=== PATIENT | male | born 1945 | race African-American/Black ===

== ENCOUNTER 2025-07-18 15:59 | Inpatient (IN) | payer MEDICARE, BC, SELFPAY ==
--- OUTSIDE RECORDS SUMMARY | 2022-05-15 06:00 | XMS_ITS | Continuity of Care Document ---
Author Organization [facility] (Formerly [employer] Address [address] [facility] [address] [place] [address] Phone Care Team Providers Care Van Driver Helper Name Role Phone Lloyd White MD, FACS Unavailable Unavailab le Allergies, Adverse Reactions, Alerts Substance Reaction Status Criticality No Known Allergies Active No Inform ation Medications Medication Instructions Dosage Effective Dates (start - stop) Status Comments ketorolac 0.5 % eye drops instill 1 drop in the operated eye 3 times a day x 1 month; to begin after being seen in the office for first post op visit. - Active Polytrim 10,000 unit-1 mg/mL eye drops Instill one drop into Operated Eye QID x 7 days; to begin after being seen in the office for first post op visit. - Active prednisolone acetate 1 % eye drops,suspension Instill 1 drop into Operated Eye QID x 2 weeks, BID x 2 weeks; to begin after being seen in the office for first post op visit. - Active folic acid 0.8 mg capsule take 1 capsule by oral route every day for 1 month 1 capsule - Active allopurinol 300 mg tablet take 1 tablet by oral route every day 300 MG - Active lactulose 10 gram oral packet take 1 packet by oral route every day dissolved in 4 ounces of water 10 G - Active brimonidine 0.2 % eye drops instill 1 drop by ophthalmic route 2 times every day into left eye 1 drop - Active furosemide 40 mg tablet take 1 tablet by oral route every day 40 MG - Active rosuvastatin 5 mg tablet take 1 tablet by oral route every day 5 MG - Active colchicine 0.6 mg capsule take 1 capsule by oral route every day 0.6 MG - Active Lotrel 10 mg-20 mg capsule benazepril - Active Procedures Procedure Date [facility] W/ECP IOLMaster-Professional No Charge Refraction No Charge Optomap Fundus Photos 022 Post-op Follow-up Visit [facility] W/ECP IOLMaster-Technical Corneal Topography SCODI, Retina IOLMaster-Professional No Charge Refraction Office/outpatient Visit, New Advance Directives Directive Yes / No Effective Date File Name No Information Encounters Encounter Description Practice Location Reason(s) For Visit Diagnoses Date Provider Providers Copied on [facility]counter [facility], [address] [place] [address] [employer] [facility], [place], [id number], tel:[phone] [facility] No Information 2 Christopher Desai. [address] [place] [address] [employer] [facility], [address], [place], [address], . tel:[phone] Referring Provider: Rajeev Juan OD, [address] [place], [address]. tel:[phone] [facility], [address] [place] [address] [employer] [address], [place], [place], [id number], tel:[phone] SEC Vishal Cuevas No Information 2 Christopher Desai. [address] [place] [address] [employer], [address], [place], [place], [address], . tel:[phone] Referring Provider: Rajeev Juan OD, [address] [place], [address]. tel:[phone] [facility], [address], [place], [place], [address], [place] tel:[phone] [place] 1 week postop/ 90 day (chief complaint) Postop check 2 Christopher Lloyd. Formerly named [facility] [address], [address], [place], [place], [address], . tel:[phone] Referring Provider: Rajeev Juan OD, 1 [facility] [employer] [place], [place], [address]. tel:[phone] [facility], [address] [place], [place] [address], [place], [place], [address], tel:[phone] [facility] No Information 2 Christopher Lloyd. Formerly named [facility] [address], [address], [place], [place], [address], . [phone] Referring Provider: Rajeev Juan OD, 1 [facility] [employer] [place], [place], [address]. tel:[phone] [facility], Formerly named [facility] [address], [place], [place], [address], tel:[phone] [place] Testing only (chief complaint) No Information 2 Christopher Lloyd. Formerly named [facility] [address], [address], [place], [place], [address], [place]. [phone] Referring Provider: Rajeev Juan OD, 1 [facility], [place], [address]. tel:[phone] [facility] [address] [facility], [address] [place], [place] [address], [place], [place], [address], [place] tel:[phone] [place] No Information 2 [place] Lloyd. Formerly named [facility] [address], [address], [place], [place], [address], [place]. [phone] Referring Provider: Rajeev Juan OD, 1 [facility], [place], [address]. tel:[phone] [facility] Eye [facility], [address], [place], [place], [address], [place] tel:[phone] [place] No Information 2 Ashland Lloyd. [address], [address], [place], [place], [address], [place]. tel:[phone] Office/outpa tient Visit, [place] [facility], [address], [place], [place], [address], [place] tel:[phone] SEC [facility] Cataract evaluation (chief complaint) Combined forms of age-related cataract, bilateralPri dao open-angle glaucoma, bilateral, indeterminat e stage 2 Christopher Lloyd. Formerly named [facility] [employer], [address], [place], [place], [address], [place]. tel:[phone] Referring Provider: Rajeev Juan OD, 1 [facility], [place], [address]. tel:[phone] [facility], [address], [place], [place], [address], [place] tel:[phone] SEC Vish[place] N [place] No Information 2 Paige OD Miguel. [address] [facility] [place], [address], [place]. tel:[phone] [facility], [address], [place], [place], [address], [place] tel:[phone] SEC [place] No Information 2 Christopher Lloyd. [address], [address], [place], [place], [address], [place]. tel:[phone] Family History Family Member Type Diagnosis Age At Onset Problem Family history of Glaucoma Problem Family history of Diabetes edgardo monroe Payers Payer name Insurance type Covered constitution party ID Susu lainez(s) [place] [id number] [place] Out Of [place] [id number] Social History Type Description Quantity Date Captured Comments Sex Male Smoking Status No Information Chief Complaint And Reason For Visit No Information Reason For Referral Reason For Referral No Information Plan Of Treatment Date Type Action Status Goal Tobacco cessation counseling completed Goal Tobacco cessation counseling completed Goal Tobacco cessation counseling completed Goal Tobacco cessation counseling completed History Of Present Illness Encounter Date Complaint History Of Prese nt Illness 1 week postop/ 90 day The 76 yea r old patient presents for evaluation of 1 week postop/ 90 day in the right eye and left eye. Pt. has h/o PC/IOL w/ ECP OD 04/17/2022, and Cataract OS. Pt. using Pred. Acetate 1% OD bid and Ketorolac OD tid. Pt. states vision is much better in OD since surgery. Pt. states no pain or discomfort. Pt. states vision with OS is blurry trying to read fine print. Pt. also has trouble driving at night due to glare from headlights. Testing only The 76 year old patient presents for evaluation of Testing only in the right eye and left eye. Pt presents for IOL Master, Keratograph and OCT Macula. Cataract evaluation The 76 year old patient presents for evaluation of Cataract with possible ECP evaluation in the right eye and left eye. Hx of Cataracts OU and Glc OU. Pt using Brimonidine OU bid (when he remembers, about every other day). Pt states OU VA blurry, like looking through a fog. Pt states it's difficult to drive at night due to headlight glare, having to get closer to street signs to see them clearly, and it's difficult to see small print. DVA and NVA gradual decrease x 2 yrs. Functional Status Date Functional Assessmen t No Information Instructions Date Instruction Additional Infor mation Impression/Plan Impression/Plan Assessments Type Assessment Date No Information Patient Care Teams Name Effective Dates (start - stop) Status Members No Information
--- OUTSIDE RECORDS SUMMARY | 2025-07-18 16:06 | XMS_ITS | Encounter Summary ---
Author Organization [employer] Address [address] [place] [address] Care Team Providers Care Bag Machine Tender Name Role Phone Unavailable Primary Care Provider Unavailabl e Encounter Details Date Type Department Care Team (Late st Contact Info) Description 05/27/2019 Lab Requisition [facility] [address] [place] [address] Roxanne Cota MD [address] [place] [address] Weakness Social History Tobacco Use Types Packs/Day Years Used Date Smoking Tobacco: Never Assessed Sex and Gender Information Value Date Recorded Sex Assigned at Not on file Legal Sex Male 1:23 AM CDT Gender Identity Not on file Sexual Orientation Not on file documented as of this encounter Plan of Treatment Not on file documented as of this encounter Procedures Procedure Name Priority Date/Time Associated Diagnosis Comments CBC WITH DIFFERENTIAL Routine 05/27/2019 5:12 AM CDT Weakness TSH Routine 05/27/2019 5:12 AM CDT Weakness BASIC METABOLIC PANEL Routine 05/27/2019 5:12 AM CDT Weakness documented in this encounter Results * TSH (05/27/2019 5:12 AM CDT) TSH 1.97 0.27 - 4.20 uIU/mL 05/27/2019 8:37 AM CDT [facility] [employer] [facility] Blood Venipuncture / Unknown 05/27/2019 5:12 AM CDT 05/27/2019 7:30 AM CDT us Roxanne Cota MD CHEMISTRY ORDERABLES Final Resu lt [employer] LABORATORY SERVICES - [facility] CLIA# [id number] [address] [place] [address] * (ABNORMAL) BASIC METABOLIC PANEL (05/27/2019 5:12 AM CDT) SODIUM 141 136 - 145 mmol/L 05/27/2019 8:34 AM T [employer] LABORATORY SERVICES - . [facility] POTASSIUM 3.8 3.5 - 5.0 mmol/L 05/27/2019 8:34 AM T [employer] [facility] SERVICES - . [facility] CHLORIDE 105 98 - 107 mmol/L 05/27/2019 8:34 AM T [employer] [facility] - . [facility] CO2 25 22 - 29 mmol/L 05/27/2019 8:34 AM [facility] [employer] SERVICES - . [facility] CALCIUM 8.9 8.6 - 10.2 mg/dL 05/27/2019 8:34 AM T [employer] SERVICES - . [facility] BUN 7(L) 8 - 23 mg/dL 05/27/2019 8:34 AM T [employer] SERVICES - [facility] CREATININE 0.69 0.67 - 1.17 mg/dL 05/27/2019 8:34 AM [facility] [employer] SERVICES [facility] Comment: The GFR result is not clinically significant on patients <18 or >70 years of age. GLUCOSE 83 74 - 99 mg/dL 05/27/2019 8:34 AM [facility] [employer] [facility] GFR >60 mL/min/1.7 3 sq meter 05/27/2019 8:34 AM [facility] [employer] SERVICES [facility] Comment: eGFR has not been validated for use in the elderly (> 70 years of age), women, patients with serious co-morbid conditions, or persons with extremes of body size or muscle mass and should also be interpreted with caution in patients with acute kidney failure, dialysis dependent patients, patients reporting exceptional dietary intake (e.g. vegetarian diet, high protein diets, creatine supplementation), and patients with severe liver disease. Based on National Kidney Disease Education Program If patient is , please refer to the GFR result. GFR, >60 mL/min/1.7 3 sq meter 05/27/2019 8:34 AM CDT [employer] LABORATORY SERVICES - [facility] ANION GAP 11 8 - 16 mmol/L 05/27/2019 8:34 AM CDT [facility] LABORATORY SERVICES - [facility] Blood Venipuncture / Unknown 05/27/2019 5:12 AM CDT 05/27/2019 7:30 AM CDT Roxanne Cota MD CHEMISTRY ORDERABLES Final Resu lt [facility] LABORATORY SERVICES - [facility] CLIA# [id number] [address] [facility] [address] [address] * (ABNORMAL) CBC WITH DIFFERENTIAL (05/27/2019 5:12 AM CDT) WBC 9.2 4.0 - 9.8 K/uL 05/27/2019 8:34 AM CDT [employer] LAB[facility]ATORY SERVICES - [facility] RBC 2.73(L) 4.50 - 5.40 M/uL 05/27/2019 8:34 AM CDT [employer] [facility]ATORY SERVICES - [facility] HEMOGLOBIN 8.9(L) 13.6 - 16.5 g/dL 05/27/2019 8:34 AM CDT [facility] LABORATORY SERVICES - [facility] HEMATOCRIT 28.1(L) 40.0 - 48.0 % 05/27/2019 8:34 AM CDT [employer] LABORATORY SERVICES - [facility] MCV 102.9(H) 82.0 - 99.0 fL 05/27/2019 8:34 AM CDT [facility] SERVICES - [facility] MCH 32.6 27.2 - 32.6 pg 05/27/2019 8:34 AM CDT [employer] [facility] - [facility] MCHC 31.7 31.5 - 35.5 g/dL 05/27/2019 8:34 AM CDT [employer] [facility] - [facility] RDW 17.3(H) 11.5 - 14.5 % 05/27/2019 8:34 AM CDT [employer] [facility] - [facility] RDW-STDEV 64.2(H) 37.1 - 48.7 fL 05/27/2019 8:34 AM CDT [employer] [facility]AT[facility] SERVICES - . [facility] PLATELETS 127(L) 140 - 350 K/uL 05/27/2019 8:34 AM T [facility] MPV 13.4(H) 9.3 - 12.4 fL 05/27/2019 8:34 AM T [facility] NEUTROPHILS 71 % 05/27/2019 8:34 AM T [facility] LYMPHOCYTES 16 % 05/27/2019 8:34 AM CDT [facility] MONOCYTES 8 % 05/27/2019 8:34 AM T [facility] EOSINOPHILS 3 % 05/27/2019 8:34 AM T [facility] BASOPHILS 1 % 05/27/2019 8:34 AM [facility] [employer] [facility] IMMATURE GRANULOCYTES 1 % 05/27/2019 8:34 AM [facility] [employer] LABORATORY SERVICES - . [facility] Comment:IG (Immature Granulo cyte) count includes Metamyelocytes, Myelocytes, and Promyelocytes NEUTROPHIL ABSOLUTE 6.53 1.90 - 7.00 K/uL 05/27/2019 8:34 AM T [facility] LYMPHOCYTE ABSOLUTE 1.50 0.70 - 4.50 K/uL 05/27/2019 8:34 AM T [facility] MONOCYTE ABSOLUTE 0.73 0.10 - 1.30 K/uL 05/27/2019 8:34 AM [facility] [employer] [facility] EOSINOPHIL ABSOLUTE 0.28 0.00 - 0.70 K/uL 05/27/2019 8:34 AM [facility] [employer] [facility] BASOPHILS ABSOLUTE 0.07 0.00 - 0.20 K/uL 05/27/2019 8:34 AM [facility] [employer] [facility] - . [facility] IMMATURE GRANULOCYTES ABSOLUTE 0.05(H) 0.00 - 0.03 K/uL 05/27/2019 8:34 AM [facility] [employer] [facility] Blood Venipuncture / Unknown 05/27/2019 5:12 AM CDT 05/27/2019 7:18 AM CDT Roxanne Cota MD HEMATOLOGY ORDERABLES Final Res ult [facility] LABORATORY [facility]# [id number] [address] [place] [address] documented in this encounter Visit Diagnoses Diagnosis Weakness Other malaise and fatigue documented in this encounter
--- OUTSIDE RECORDS SUMMARY | 2025-07-18 16:06 | XMS_ITS | Clinical Summary ---
Author Organization [facility] Address [facility] [place] [address] Care Team Providers Care Sporting Goods Sales Manager Name Role Phone Chloe Raymond MD Primary Care Provider [phone] Allergies No known active allergies Immunizations Immunization Administration Dates Next Due MODERNA COVID-19 (12+) MRNA, LNP-S, PF, 100 MCG/ 0.5 ML DOSE 12/09/2020,11/11/2020 Social History Tobacco Use Types Packs/Day Years Used Date Smoking Tobacco: Never Smokeless Tobacco: Current Chew Tobacco Cessation:Ready to Q uit: Not Asked; Counseling Given: Not Answered Alcohol Use Standard Drinks/Week Comments Yes 0 (1 standard drink = 0.6 oz pur e alcohol) AUDIT-C Answer Date Recorded Frequency of Alcohol Consumption Never 06/30/2019 Average Number of Drinks Not on file 019 Frequency of Binge Drinking Not on file 09/2018 Sex and Gender Information Value Date Recorded Sex Assigned at Not on file Legal Sex Male 11:40 AM CDT Gender Identity Not on file Sexual Orientation Not on file Last Filed Vital Signs Vital Sign Reading Time Taken Comments Blood Pressure 112/65 12/25/2023 5:36 PM CDT Pulse 83 12/25/2023 5:36 PM CDT Temperature 36.3 C (97.4 F) 12/25/2023 5:36 PM CDT Respiratory Rate 16 12/25/2023 5:36 PM CDT Oxygen Saturation 99% 12/25/2023 5:36 PM CDT Inhaled Oxygen Concentration - - Weight 104.3 kg (230 lb) 12/25/2023 5:36 PM CDT Height 190.5 cm (6' 3) 12/25/2023 5:36 PM CDT Body Mass Index 28.75 12/25/2023 5:36 PM CDT Plan of Treatment Health Maintenance Due Date Last Done Comments Hepatitis C 1963 DTaP, Tdap and Td Vaccines ( 1 - Tdap) 1965 Pneumococcal Vaccine: 50+ Years (1 of 1 - PCV) 1996 Zoster Vaccines (1 of 2) 1996 Annual Medicare Wellness Visit 2011 RSV Immunization or 60+ Years (1 - 1-dose 75+ series) 2021 COVID-19 Vaccine (3 - 2024-2 6 season) 2025 12/09/2020, 11/11/2020 Influenza Adult (#1) 2025 Hepatitis A Vaccines Aged Out No long er eligible based on patient's age to complete this topic Meningococcal B Vaccine Aged Out No l onger eligible based on patient's age to complete this topic Meningococcal Vaccine Aged Out No lv dipak eligible based on patient's age to complete this topic RSV Immunizations Under 20 Months Aged Out No longer eligible b ased on patient's age to complete [place] [id number] [facility] Care Teams Sporting Goods Sales Manager Relationship Specialty Start Date End Date Chloe Raymond MD [address] [place] [address] ,[address] [address] PCP - General INTERNAL MEDICINE 06/30/19
--- OUTSIDE RECORDS SUMMARY | 2025-07-18 16:06 | XMS_ITS | Clinical Summary ---
Author Organization [facility] Address [address] [place] [address] Care Team Providers Care Prototype Machine Operator Name Role Phone Chloe Raymond MD Primary Care Provider [phone] Allergies No known active allergies Medications benazepril (LOTENSIN) 20 mg tablet 3 9 Active HYDROcodone-nagie taminophen (NORCO) 5-325 mg per tabletIndicatio ns:Pain Take 1-2 tablets every 4 hours as needed for pain 30 tablet 9 Active spironolactone (ALDACTONE) 25 mg tablet Take 2 tablets (50 mg total) by mouth daily 4 Active midodrine (PROAMATINE) 5 mg tablet Take 1 tablet (5 mg total) by mouth 2 (two) times a day 4 Active folic acid (FOLVITE) 1 mg tablet Take 1 tablet (1,000 mcg total) by mouth daily Active Jardiance 10 mg tablet 1 tablet (10 mg total) 4 Active carvediloL (COREG) 3.125 mg tablet 1 tablet(s), Oral, [id number], 180 tablet(s), 0, Route to Pharmacy Electronically, [id number], [id number] 2158, 192, cm, 05/07/24 10:47:00 CDT, Height, 97.3, kg, 05/07/24 10:47:00 CDT, Weight 4 Active bumetanide (BUMEX) 2 mg tablet TAKE 1 TABLET BY MOUTH TWICE DAILY CANCEL PREVIOUS PRESCRIPTION FOR 1 MG BUMEX Active Eliquis 2.5 mg tablet Take 1 tablet (2.5 mg total) by mouth 2 (two) times a day Active allopurinoL (ZYLOPRIM) 300 mg tablet 1 tablet(s), Oral, daily, 90 tablet(s), 0, Route to Pharmacy Electronically, [facility] #[id number], [id number] 2158, 192, cm, 05/07/24 10:47:00 CDT, Height, 97.3, kg, 05/07/24 10:47:00 CDT, Weight 4 Active fexofenadine (Iram Allergy) 180 mg tabletIndicatio ns:Seasonal allergic rhinitis due to pollen Take 1 tablet (180 mg total) by mouth daily 30 tablet 3 4 Active Active Problems Problem Noted Date Diagnosed Date Sensorineural hearing loss (SNHL) of both ears 1 10/11/2023 Pulsatile tinnitus, left ear 08/11/2024 Impacted cerumen of left ear 07/22/2024 Seasonal allergic rhinitis due to pollen 024 Conductive hearing loss of left ear 07/22/2024 Epistaxis 07/22/2024 Tinnitus of both ears 07/22/2024 Surgical History Surgery Date Site/Laterality Comments ANKLE FRACTURE SURGERY Medical History Medical History Date Comments Hypertension Hypercholesteremia Ear problems Cataracts, bilateral Bleeding disorder HL (hearing loss) Family History Medical History Relation Name Comments Gout Father Diabetes Mother Heart disease Mother Lupus Sister Relation Name Status Comments Father Mother Sister Social History Tobacco Use Types Packs/Day Years Used Date Smoking Tobacco: Never Smokeless Tobacco: Never Alcohol Use Standard Drinks/Week Comments Yes 0 (1 standard drink = 0.6 oz pur e alcohol) AUDIT-C Answer Date Recorded Frequency of Alcohol Consumption 4 or more times a week 01/05/2019 Average Number of Drinks Not on file 019 Frequency of Binge Drinking Not on file 04/2019 Sex and Gender Information Value Date Recorded Sex Assigned at Not on file Legal Sex Male 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 Gender Identity Not on file Sexual Orientation Not on file Obstetrics History Last Filed Vital Signs Vital Sign Reading Time Taken Comments Blood Pressure 132/80 01/13/2019 9:00 PM CDT Pulse 74 01/13/2019 9:00 PM CDT Temperature 36.4 C (97.6 F) 01/13/2019 9:00 PM CDT Respiratory Rate 18 08/11/2024 10:38 AM MAIL MACHINE OPERATOR Oxygen Saturation 92% 01/13/2019 9:00 PM CDT Inhaled Oxygen Concentration - - Weight 97.5 kg (215 lb) 08/11/2024 10:38 AM MAIL MACHINE OPERATOR Height 190.5 cm (6' 3) 08/11/2024 10:38 AM MAIL MACHINE OPERATOR Body Mass Index 26.87 08/11/2024 10:38 AM MAIL MACHINE OPERATOR Plan of Treatment Health Maintenance Due Date Last Done Comments Depression Screening 1945 Fall Risk Assessment 1945 Hepatitis C Screening 1945 DTaP/Tdap/Td Vaccine (1 - Tdap) 1957 Hepatitis B Screening 1964 Zoster Vaccine (1 of 2) 1996 Well Visit 65+ 2011 Covid-19 Vaccine (5 - 2024-2 6 season) 2025 02/08/2021, 01/05/2021, 12/09/2020, Additional history exists Influenza Vaccine (#1) 2025 , 07/19/2022, 08/13/2019 Pneumococcal vaccine 65+ Completed 03/29/2022 Insurance MEDICARE [employer] ACCESS OOS MEDICARE [employer] ACCESS OOS [facility] Address: [address] [place] [address] MEDICARE BLUE ACCESS OOS Advance Directives For more information, please contact: [phone] Documents on File Type Date Recorded Patient Insurance Processor Expl anation ADVANCE DIRECTIVE 01/07/2019 12:00 AM ENIO R OF [employer] ARTIST SUPERVISOR FINANCIAL/MEDICAL Care Teams Prototype Machine Operator Relationship Specialty Start Date End Date Chloe Raymond MD [address] [place] [address] [address] [place] [address] PCP - General Internal Medicine 01/02/19
--- OUTSIDE RECORDS SUMMARY | 2025-07-18 16:06 | XMS_ITS | Encounter Summary ---
Author Organization [facility] Facility Care Team Providers Care Pipe Bender Name Role Phone Chloe Raymond MD Primary Care Provider Encounter Details Date Type Department Care Team (Latest Contact Info) Description 04/16/2016 Orders Only [facility] CLINCONV ProviderSenthil MD [address] [place] [id number] Social History Tobacco Use Types Packs/Day Years Used Date Smoking Tobacco: Never Assessed Sex and Gender Information Value Date Recorded Sex Assigned at Not on file Legal Sex Male 9:14 AM [employer]TER FAT TE[employer] Gender Identity Not on file Sexual Orientation Not on file documented as of this encounter Plan of Treatment Not on file documented as of this encounter Procedures Procedure Name Priority Date/Time Associated Diagnosis Comments SCAN - LABS 04/16/2016 12:00 AM CDT documented in this encounter Results * SCAN - LABS (04/16/2016 12:00 AM CDT) Narrative 04/16/2016 12:00 AM CDT Ordered by an unspecified provider. Historical Provider Final Res ult documented in this encounter Visit Diagnoses Not on filedocumented in this encounter Care Teams Pipe Bender Relationship Specialty Start Date End Date Chloe Raymond MD [address] [place] [address] [address] [place] [address] PCP - General Internal Medicine 01/02/19 documented as of this encounter
--- OUTSIDE RECORDS SUMMARY | 2025-07-18 16:06 | XMS_ITS ---
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 Name Role Phone Roxanne Cota Unavailable Unavailable Allergies and adverse reactions Code CodeSystem Substance Reaction Severity StartDate Concern Status Lipitor Unknown 05/20/2019 active Care Team Name Role Address Phone Organization Dates Roxanne Cota PCP [address] [place], [address], [facility] (Office): : : [facility] 05/19/2019 - 05/27/2019 Goals Section Goals Description Status Target Date Gerson will verbalize adequate relief of pain or ability to cope with pain as specified by pain level goal Active 06/05/2019 Fall related injuries will be minimized through review date Active 06/05/2019 Gerson verbalize/communicate a nd understanding of the discharge plan and describe the desired outcome by the review date. Active 0 06/05/2019 Gerson will attend/participate in activities of ch oice Active 06/05/2019 Gerson will have clear lung so unds, heart rate and rhythm within normal limits through the review date. Active 06/05/2019 Gerson will remain free of com plication related to hypertension through review date. Active 06/05/2019 Gerson's wishes will be yesika d and respected and all life sustaining measures will be provided Active 06/05/2019 Will maintain health while m inimizing the possibility of negative outcomes related to substance abuse. Active 06/05/2019 Immunizations Immunization Status Vaccine Details Vaccine Code CodeSystem Date Notes Prevnar 13 cancelled created date: 05/22/2019 consent date: 05/22/2019 states he does not want to receives vaccination because when he takes vaccines he ends up getting sick. Educated of vaccine. Cont to decline. Mental Status Section Date Assessment Total Score Description 05/27/2019 BIMS 08 moderate cognit margie impairment CAM 2 Delirium indica lidia PHQ-9 00 05/26/2019 BIMS 11 moderate cognit margie impairment CAM 2 Delirium indica lidia PHQ-9 00 Insurance Providers Plan of Treatment Section Interventions Intervention Code Code System Display Name Proposed D ate Problems Problem # Description Date of onset Resolved Date Code CodeSystem Concern Status 1 ABNORMAL RESULTS OF LIVER FUNCTION STUDIES 05/19/[address] active 2 ACUTE SYSTOLIC (CONGESTIVE) HEART FAILURE 05/19/[address] active 3 ALCOHOL ABUSE, UNCOMPLICATED 05/19/[address] active 4 ALCOHOL DEPENDENCE WITH WITHDRAWAL, UNSPECIFIED 05/19/[address] active 5 ALCOHOL DEPENDENCE, UNCOMPLICATED 05/19/[address] active 6 ALCOHOLIC CIRRHOSIS OF LIVER WITHOUT ASCITES 05/19/[address] active 7 ALCOHOLIC HEPATITIS WITHOUT ASCITES 05/19/[address] active 8 ALLERGIC RHINITIS, UNSPECIFIED 05/19/[address] active 9 ANEMIA IN OTHER CHRONIC DISEASES CLASSIFIED ELSEWHERE 05/19/[address] active 10 CALCULUS OF GALLBLADDER WITH ACUTE CHOLECYSTITIS WITHOUT OBSTRUCTION 05/19/[address] active 11 COGNITIVE COMMUNICATION DEFICIT 05/19/[address] active 12 DIFFICULTY IN WALKING, NOT ELSEWHERE CLASSIFIED 05/19/[address] active 13 DIVERTICULITIS OF SMALL INTESTINE WITH PERFORATION AND ABSCESS WITHOUT BLEEDING 05/19/[address] active 14 ESSENTIAL (PRIMARY) HYPERTENSION 05/19/[address] active 15 GOUT, UNSPECIFIED 05/19/[address] active 16 HISTORY OF FALLING 05/19/[address] active 17 HYPERLIPIDEMIA, UNSPECIFIED 05/19/[address] active 18 INSOMNIA, UNSPECIFIED 05/19/[address] active 19 NEED FOR ASSISTANCE WITH PERSONAL CARE 05/19/[id number] active 20 NONSPECIFIC ELEVATION OF LEVELS OF TRANSAMINASE AND LACTIC ACID DEHYDROGENASE [LDH] 05/19/[address] active 21 OTHER ABNORMAL INVOLUNTARY MOVEMENTS 05/19/[address] active 22 OTHER CONSTIPATION 05/19/[address] active 23 OTHER IDIOPATHIC PERIPHERAL AUTONOMIC NEUROPATHY 05/19/[address] active 24 OTHER PANCYTOPENIA 05/19/[address] active 25 OTHER SPECIFIED DISORDERS OF KIDNEY AND URETER 05/19/[address] active 26 PERSONAL HISTORY OF OTHER DISEASES OF THE MUSCULOSKELETAL SYSTEM AND CONNECTIVE TISSUE 05/19/[address] active 27 PURE HYPERCHOLESTEROLEM IA, UNSPECIFIED 05/19/[address] active 28 REPEATED FALLS 05/19/[address] active 29 SHORTNESS OF BREATH 05/19/[address] active 30 THROMBOCYTOPENIA, UNSPECIFIED 05/19/[address] active 31 UNSPECIFIED INJURY OF HEAD, SUBSEQUENT ENCOUNTER 05/19/[address] active 32 UNSPECIFIED SYSTOLIC (CONGESTIVE) HEART FAILURE 05/19/[address] active Reason for Referral No Reasons for Referral Entered Social History Social History Observation Description Start Date End Date Code Code System Current Smoking Status Tobacco smoking consumption unknown 532297023 SNOMED CT Sex Assigned At Male 1945 71996-9 [facility] Gender Identity Sexual Orientation Vital Signs Code Code System Vitals Name Values and Units Timing Information 76439-2 [facility] O2 % BldC Oximetry Value=95.0 Units= % 05/27/2019 9279-1 [facility] Respiratory Rate Value=18.0 Units=/m in 05/27/2019 8867-4 [facility] Heart rate Value=80.0 Units=/min 8310-5 [facility] Body Temperature Value=97.7 Units= F 05/27/2019 8462-4 [facility] Blood Pressure-Diastolic Value=67 Un its=mmHg 05/27/2019 8480-6 [facility] Blood Pressure-Systolic Ryutr=835 Un its=mmHg 05/27/2019 32125-9 [facility] Weight Vgiwc=058.0 Units=Lbs 8302-2 [facility] Height Value=74.0 Units=Inches 05/20/2019 31834-3 [facility] Pain Level Value=0.0 05/20/2019
--- OUTSIDE RECORDS SUMMARY | 2025-07-18 16:06 | XMS_ITS | Clinical Summary ---
Author Organization [facility] Address [address] [place] [phone] Phone Care Team Providers Care Store Person Name Role Phone Unavailable Primary Care Provider Unavailabl e Social History Tobacco Use Types Packs/Day Years Used Date Smoking Tobacco: Never Assessed Sex and Gender Information Value Date Recorded Sex Assigned at Not on file Legal Sex Male 1:23 AM CDT Gender Identity Not on file Sexual Orientation Not on file Plan of Treatment Health Maintenance Due Date Last Done Comments DTAP/TDAP/TD VACCINES (1 - Tdap) 1964 PNEUMOCOCCAL VACCINE 50+ YEARS (1 of 1 - PCV) 08/09/19 96 ZOSTER VACCINE (1 of 2) 1996 RSV VACCINE (60+ or ) (1 - 1-dose 75+ series) 2021 INFLUENZA VACCINE (#1) 2025 Insurance MEDICARE PART A AND B
[2025-07-18 16:36] VITALS: BP 105/72; PULSE 85; RESP 19; TEMP 36.9; O2SAT 99
--- NOTE | 2025-07-18 16:53 | ED_ITS ---
HPI - General Adult General Chief complaint: Shortness of Breath/Dyspnea Stated complaint: leg bleed Time Seen by Provider: 07/18/25 16:17 History of Present Illness HPI narrative: 79-year-old male presents to the emergency department for evaluation for worsening cough congestion over the past week. Patient did have follow-up at an outside urgent care and was diagnosed with bilateral pneumonia. Patient states he has had decreased p.o. intake. Patient denies any prior smoking history. While getting on his fecal in the emergency department parking lot he did strike his ramon on the car door resulting in a laceration. Related Data Home Medications ?Medication ?Instructions ?Recorded ?Confirmed ?Last Taken ?Type furosemide 40 mg tablet 40 mg PO QAM 01/24/2107/17/25 History allopurinol 300 mg tablet mg 07/18/25 07/18/25 Histor y bumetanide 2 mg tablet mg 07/18/25 07/17/25 Histor y colchicine 0.6 mg tablet mg 07/18/25 07/18/25 Histor y empagliflozin 10 mg tablet 10 mg PO DAILY 07/18/2507/18/25 History (Jardiance) folic acid 1 mg tablet 07/18/25 07/18/25 History spironolactone 25 mg tablet mg 07/18/25 07/17/25 Hist ory Allergies Allergy/AdvReac Type Severity Reaction Status Date / Time No Known Allergies Allergy Unverified 02/17/18 10:30 Review of Systems 2 Review of Systems: All systems reviewed & are unremarkable except as noted in HPI and below PMFSH Social History Social History (Updated 01/24/21 @ 11:32 by Patricia Rocha MA) Smoking status: Never smoker Alcohol intake: never Substance use: never Exam 2 Narrative: APPEARANCE: Well appearing, no pain, no distress, well-nourished. HEAD: normocephalic, atraumatic. EYES: PERRLA/EOMI, conjunctivae clear. NOSE: Normal no drainage EARS:TMS clear with good light reflex. THROAT: Pharynx clear, no exudate. NECK: Supple. No adenopathy, no masses. RESPIRATORY: Airway patent, respirations nonlabored. Clear to auscultation bilaterally, no rales, rhonchi, wheezing. CARDIOVASCULAR: Regular rate and rhythm without murmurs rubs or gallops. ABDOMINAL: Soft, nontender, nondistended, normal bowel sounds MUSCULOSKELETAL: Laceration to anterior right ramon NEURO: Alert. Cranial nerves II through XII intact. Good gait. Good coordination SKIN: Warm, dry. Normal Color Course Vital Signs Vital signs: Vital Signs Temperature 98.5 F 07/18/25 16:36 Pulse Rate 85 07/18/25 16:36 Respiratory Rate 19 07/18/25 16:36 Blood Pressure 105/72 07/18/25 16:36 Pulse Oximetry 99 07/18/25 16:36 Temperature 98.5 F 07/18/25 16:36 Pulse Rate 85 07/18/25 16:36 Respiratory Rate 19 07/18/25 16:36 Blood Pressure 105/72 07/18/25 16:36 Pulse Oximetry 99 07/18/25 16:36 Procedures Laceration Laceration 1: Site: lower extremity Side (If applicable): right Size (cm): 5 Description: linear and clean Depth: simple, single layer Local Anesthetic: lidocaine 1% and with epi Amount of anesthesia used (mL): 3 Pre-repair: wound explored and irrigated extensively ====== Skin Level ====== Skin layer closed with: prolene Size (cm): 4-0 Number of sutures: 4 Technique: simple, interrupted ====== Subcutaneous Layer ====== ====== Muscle Layer ====== ====== Tendon Layer ====== Medical Decision Making [facility] Narrative Medical decision making narrative: 79-year-old male presented to the emergency department for evaluation for increased generalized weakness cough and congestion. Patient was diagnosed with a bilateral pneumonia at outside urgent care. Radiology did read the x-ray did confirm CHF with bilateral pneumonia. Patient was started on Rocephin and a set throughout the emergency department, blood cultures were ordered and patient was also treated with Lasix for his CHF. Patient's laceration was repaired as described in the procedure note. Case was discussed with hospitalist patient was accepted for admission. Differential Diagnosis Differential Diagnosis: COVID, RSV, influenza, CHF, pneumonia, laceration Vital Signs Vital Signs: Vital Signs Temperature 98.5 F 07/18/25 16:36 Pulse Rate 85 07/18/25 16:36 Respiratory Rate 19 07/18/25 16:36 Blood Pressure 105/72 07/18/25 16:36 Pulse Oximetry 99 07/18/25 16:36 Temperature 98.5 F 07/18/25 16:36 Pulse Rate 85 07/18/25 16:36 Respiratory Rate 19 07/18/25 16:36 Blood Pressure 105/72 07/18/25 16:36 Pulse Oximetry 99 07/18/25 16:36 Lab Data Lab results reviewed: Yes I reviewed the patient's lab results. 07/18/25 17:24 07/18/25 17:24 Labs: Lab Results 07/18/25 07/18/25 07/18/25 Range/Units 17:24 17:24 17:24 WBC 4.2 L (4.5-10.0) K/mm3 RBC 4.09 L (4.6-6.20) M/mm3 Hgb 12.2 L (14.0-18.0) g/dL Hct 39.5 L (42.0-52.0) % MCV 96.6 (80-100) fl MCH 29.8 (26-34) pg MCHC 30.9 L (32-36) g/dl RDW 16.1 H (11.5-14.5) % Plt Count 90 L (150-375) k/mm3 MPV Not Reportable Immature Gran % (Auto) 0.2 (0-0.5) % Neut % (Auto) 79.6 H (45.5-73.1) % Lymph % (Auto) 10.5 L (18.3-44.2) % [place] % (Auto) 7.6 (2.6-8.5) % Eos % (Auto) 1.9 (0-4.4) % Baso % (Auto) 0.2 (0.2-1.2) % Lymph # (Auto) 0.44 L (0.9-3.2) K/mm3 [place] # (Auto) 0.3 (0.1-0.6) K/mm3 Eos # (Auto) 0.1 (0-0.3) K/mm3 Baso # (Auto) 0.0 (0.0-0.1) K/mm3 Abs Immat Gran (auto) 0.01 (0.00-0.031) K/mm3 Absolute Neuts (auto) 3.3 (1.3-6.7) K/mm3 Absolute Nucleated RBC 0.000 (0.0-0.012) K/mm3 Band Neutrophils % Not Reportable Nucleated RBC % 0.0 (0.0-0.2) % Platelet Estimate Decreased (Adequate) % Immature Plt Fraction 8.4 (0.9-11.2) % Schistocytes None seen Sodium 135 L (137-145) mmol/L Potassium 5.0 (3.4-5.0) mmol/L Chloride 102 (98-107) mmol/L Carbon Dioxide 29 (22-30) mmol/L Anion Gap 4 (4-12) mmol/L BUN 37 H (9-20) mg/dL Creatinine 1.07 (0.7-1.3) mg/dL Estim Creat Clear Calc Not Reportable Estimated GFR > 60 (59 - ) Glucose 83 (65-110) mg/dL Lactic Acid 1.3 (0.7-2.0) mmol/L Calcium 8.7 (8.4-10.2) mg/dL Total Bilirubin 0.7 (0.2-1.3) mg/dL AST 46 (17-59) U/L ALT 19 (6-50) U/L Alkaline Phosphatase 103 (38-126) U/L C-Reactive Protein 4.2 H Cancelled (<1.0) mg/dL NT-Pro-B Natriuret Pep 6860 H Cancelled (19.9-100) pg/mL Total Protein 6.8 (6.3-8.2) g/dL Albumin 3.0 L (3.5-5.1) g/dL Influenza A (RT-PCR) Negative (Negative) Influenza B (RT-PCR) Negative (Negative) RSV (RT-PCR) Negative (Negative) SARS-CoV-2 RNA (RT-PCR) Negative (Negative) Discharge Plan Discharge Clinical Impression: Congestive heart failure, Community acquired pneumonia Patient Disposition: Still a Patient Condition: Serious Patient Language: Montserratian Prescriptions: No Action furosemide 40 mg tablet 40 mg PO QAM spironolactone 25 mg tablet folic acid 1 mg tablet Jardiance 10 mg tablet 10 mg PO DAILY bumetanide 2 mg tablet allopurinol 300 mg tablet colchicine 0.6 mg tablet Follow-up/Referrals: Mandi,Chloe Sher MD [Primary Care Provider, Unknown]
[2025-07-18 17:35] LABS: Hematocrit 39.5 % (42.0-52.0); Hemoglobin 12.2 g/dL (14.0-18.0); Immature Granulocyte Percent A 0.2 % (0-0.5); Immature Platelet Fraction Pct 8.4 % (0.9-11.2); Lymphocytes Absolute Auto 0.44 K/mm3 (0.9-3.2); Mean Corpuscular HGB Conc 30.9 g/dl (32-36); Mean Corpuscular Hemoglobin 29.8 pg (26-34); Mean Corpuscular Volume 96.6 fl (80-100); Nucleated Red Blood Cells Absolute Auto 0.000 K/mm3 (0.0-0.012); Nucleated Red Blood Cells Perc 0.0 % (0.0-0.2); Platelet Count Result 90 k/mm3 (150-375); Red Blood Count 4.09 M/mm3 (4.6-6.20); White Blood Count 4.2 K/mm3 (4.5-10.0)
[2025-07-18 17:44] LABS: Schistocytes None Seen
[2025-07-18 17:53] LABS: Alanine Aminotransferase 19 U/L (6-50); Albumin Level 3.0 g/dL (3.5-5.1); Alkaline Phosphatase 103 U/L (38-126); Anion Gap 4 mmol/L (4-12); Aspartate Amino Transferase 46 U/L (17-59); Bilirubin,Total 0.7 mg/dL (0.2-1.3); Blood Urea Nitrogen 37 mg/dL (9-20); CRP 4.2 mg/dL (<1.0); Calcium 8.7 mg/dL (8.4-10.2); Carbon Dioxide 29 mmol/L (22-30); Chloride 102 mmol/L (98-107); Estimated Glomerular Filt Rate > 60; Glucose 83 mg/dL (65-110); Potassium 5.0 mmol/L (3.4-5.0); Sodium 135 mmol/L (137-145); Total Protein 6.8 g/dL (6.3-8.2)
[2025-07-18 17:58] LABS: NT Pro B Type Natriuretic Pept 6860 pg/mL (19.9-100)
[2025-07-18 18:09] LABS: Influenza A QL RT-PCR Negative (Negative); Influenza B QL RT-PCR Negative (Negative); RSV RNA, RT-PCR Negative (Negative); SARS-CoV-2 RNA PCR Negative (Negative)
[2025-07-18] MEDS: LIDO 1%/EPINEPHRINE 1:100,000 20 ML VIAL 10 ML INFILTRATE (18:38)
[2025-07-18] MEDS: FUROSEMIDE INJ 40 MG/4 ML VIAL IV PUSH (18:38)
[2025-07-18] MEDS: cefTRIAXone 1 GM in SODIUM CHLORIDE 0.9% IV 50 ML 100 ML IVPB (18:39)
[2025-07-18] MEDS: AZITHROMYCIN IV 500 MG in SODIUM CHLORIDE 0.9% IV 250 ML IVPB (19:55)
--- NOTE | 2025-07-18 21:05 | PM.IMHP ---
H&P: HPI History of Present Illness Date/Time: 07/18/25 21:05 Chief Complaint: Shortness of breath Narrative: A 79-year-old male with a past medical history of CHF, gout presented to the ED on 07/18/2025 with complaints of shortness of breath. Patient states his shortness of breath and cough has been present for the past week and has slowly been worsening. He presented today at an urgent care and was diagnosed with bilateral pneumonia and was referred to the ED. while getting into his vehicle at the urgent care the patient hit his ramon on the car door, resulting in a laceration. Patient states he has also had decreased p.o. intake. Denies any fever, chills, chest pain. Patient feels more dyspneic with activity and needs to rest more frequently. Is not on home O2. States he is not normally short of breath at baseline. Does endorse bilateral lower extremity edema at times. Initial vital signs were 105/72, HR 85, respirations 19, 98.5? F, 99% on room air No baseline available for labs. CBC Significant for WBC 4.2, RBC 4.09, HGB 12.2. Chemistry with CRP 4.2, BNP 6860. Viral panel negative Radiology read chest x-ray from urgent care as CHF with bilateral pneumonia Review of Systems Review of Systems: All systems reviewed & are unremarkable except as noted in HPI and below [facility] Social History Social History (Updated 01/24/21 @ 11:32 by Patricia Rocha MA) Smoking status: Never smoker Alcohol intake: former Substance use: former Lack of Transportation: No Lack of Food: Never True Current Housing: I Have Housing Concerned About Future Housing: No Difficulty Paying Gas/Electric Bills: No Difficulty Paying for Meds: No Currently Unemployed: No Education: Associate Degree Difficulty w/ Childcare or Family Care: No Spiritual care concerns: No Meds Home Medications and Allergies Home Medications ?Medication ?Instructions ?Recorded ?Confirmed ?Type furosemide 40 mg tablet 40 mg PO QAM 01/24/21 07/18/25 History allopurinol 300 mg tablet mg 07/18/25 History bumetanide 2 mg tablet mg 07/18/25 History colchicine 0.6 mg tablet mg 07/18/25 History empagliflozin 10 mg tablet 10 mg PO DAILY 07/18/25 07/18/25 History (Jardiance) folic acid 1 mg tablet 07/18/25 History spironolactone 25 mg tablet mg 07/18/25 History Allergies Allergy/AdvReac Type Severity Reaction Status Date / Time No Known Allergies Allergy Verified 07/18/25 23:11 Vital Signs Vital Signs - 24 hr 07/18/25 16:36 Temperature 98.5 F Pulse Rate 85 Respiratory Rate 19 Blood Pressure 105/72 Pulse Oximetry 99 Exam Narrative: GENERAL: non-toxic appearing, in no acute distress. HEAD: Normocephalic, atraumatic. EYES: PERRLA. Conjunctivae clear. NOSE: Normal no drainage. THROAT: Pharynx clear, no exudate. NECK: Trachea midline.No adenopathy, no masses. RESPIRATORY: Airway patent, respirations nonlabored. Breath sounds diminished throughout. Frequent productive cough CARDIOVASCULAR: Regular rate and rhythm . Bilateral lower extremity edema with chronic skin changes GASTROINTESTINAL: Abdomen is soft and nontender. No organomegaly. Bowel sounds normal in all quadrants. GENITOURINARY: Defer MUSCULOSKELETAL: Moves all extremities. No gross deformities. Moves all extremities well. No calf tenderness. SKIN: Warm, dry, normal color. NEURO: A&O X4. Speech clear PSYCHIATRIC: Normal interaction H&P: Results Labs Labs: Short CBC 07/18/25 Range/Units 17:24 WBC 4.2 L (4.5-10.0) K/mm3 Hgb 12.2 L (14.0-18.0) g/dL Hct 39.5 L (42.0-52.0) % Plt Count 90 L (150-375) k/mm3 BMP 07/18/25 17:24 Sodium 135 L Potassium 5.0 Chloride 102 Carbon Dioxide 29 BUN 37 H Creatinine 1.07 Glucose 83 Calcium 8.7 Liver Function 07/18/25 Range/Units 17:24 Total Bilirubin 0.7 (0.2-1.3) mg/dL AST 46 (17-59) U/L ALT 19 (6-50) U/L Alkaline Phosphatase 103 (38-126) U/L Albumin 3.0 L (3.5-5.1) g/dL Assessment and Plan Assessment and plan (1) Community acquired pneumonia: Qualifiers: Laterality: unspecified laterality Qualified Code(s): J18.9 - Pneumonia, unspecified organism Code(s): J18.9 - Pneumonia, unspecified organism Status: Acute Assessment and Plan: Patient with shortness of breath and productive cough x1 week. He states he is unable to expel sputum. Radiology read chest x-ray from urgent care as CHF with bilateral pneumonia. CRP elevated -blood cultures pending - started on ceftriaxone and azithromycin -DuoNebs -Tylenol -Mucinex - Viral PCR negative - supplemental O2 current not required (2) Congestive heart failure: Qualifiers: Heart failure type: unspecified Heart failure chronicity: acute on chronic Qualified Code(s): I50.9 - Heart failure, unspecified Code(s): I50.9 - Heart failure, unspecified Status: Acute Assessment and Plan: Radiology read chest x-ray from urgent care as CHF with bilateral pneumonia. Bilateral lower extremity edema noted. - BNP 6860 -furosemide 40 mg IV push b.i.d. -echo ordered - monitor I&Os and daily weights - trend renal function Plan Diet: Heart healthy GI prophylaxis: NA DVT prophylaxis: SCD lines/drains: PIV Fluids: Not required Code status: Full
[2025-07-18 22:56] VITALS: BMI 25.2
--- NOTE | 2025-07-18 22:56 | ADMGEN ---
This patient, Gerson Sanchez, was admitted to [facility] Surg Room 330-02. Patient/family oriented to hospital policies and general routines including ID bracelet, bed and alarms, visiting hours, pain management, procedures, bathroom and other care routines, personal items, smoking policy, room service/diet, and visiting hours. Information on how to activate the Rapid Response Team has been discussed. Patient/Family are encouraged to report perceived risks to care and to ask questions if they do not understand what they are told or what they should do.
[2025-07-18 23:13] VITALS: BP 104/68; PULSE 78; RESP 16; TEMP 36.3; O2SAT 100
[2025-07-19] VITALS (10 sets, daily range): BP systolic 98–115; BP diastolic 51–63; PULSE 74–95; RESP 14–16; TEMP 35.9–36.7; O2SAT 99–100
--- NOTE | 2025-07-19 | ECHO_ITS ---
Patient Info Name: Gerson Sanchez Age: 79 years : 1945 Gender: Male Ht: 75 in Wt: 202 lbs BSA: 2.21 m2 HR: 79 bpm BP: 115 / 64 mmHg Technical Quality: Good Exam Date: 07/19/2025 2:28 PM Patient Status: I Admit Date: 07/19/2025 Exam Type: CA echo doppler color flow Complete two-dimensional, color flow and Doppler transthoracic echocardiogram is performed. Staff Referring Physician: Nghia Ingram Social Media Marketing Analyst: Carlos Hernandez III Attending Provider: Edmund Maier Summary 1. Complete two-dimensional, color flow and Doppler transthoracic echocardiogram is performed. 2. Normal LV size, moderate LVH, moderate LV systolic dysfunction, ejection fraction calculated at 38 %. Diastolic dysfunction is present with elevated left atrial pressures. Mild RV enlargement with mild hypokinesis. Moderate left atrial and severe right atrial enlargement. Mild mitral annular calcification, trivial to mild MR. Aortic valve appears mildly sclerotic, trileaflet, no hemodynamically significant stenosis. Trace tricuspid regurgitation, RVSP 37 mmHg. Small pericardial effusion with echogenic material. Left pleural effusion is noted. Dilated IVC without respiratory collapse. Left Ventricle Left ventricular chamber dimension is normal. Left ventricular systolic function is moderately reduced, estimated at 35-40. There is moderately increased left ventricular wall thickness. The left ventricular diastolic function is abnormal. E/e' 12.9 is elevated. Right Ventricle Right ventricular chamber dimension is mildly enlarged. Right ventricular systolic function is reduced. Left Atria Left atrial chamber dimension is moderately enlarged. Right Atria Right atrial chamber dimension is severely enlarged. Aortic Valve The aortic valve is trileaflet. There is mild aortic valve calcification. Pulmonic Valve The pulmonic valve is normal. There is mild pulmonic regurgitation. Mitral Valve There is mild mitral valve regurgitation. The mitral valve annulus is mildly calcified. Tricuspid Valve The tricuspid valve leaflets are normal. There is trace tricuspid valve regurgitation. Pericardium/Pleural There is small pericardial effusion. Inferior Vena Cava Dilated inferior vena cava with no collapse upon inspiration consistent with elevated right atrial pressure, 15 mmHg. Aorta The aortic root size at the sinus of Valsalva is not well visualized. Left Ventricular Outflow Tract Name Value Normal LVOT Doppler LVOT Peak Velocity 72 cm/s LVOT Peak Gradient 2 mmHg LVOT Mean Gradient 1 mmHg LVOT VTI 11 cm LVOT VTI/AV VTI Ratio 0.8 Pulmonic Valve Name Value Normal PV Regurgitation Doppler [place] Peak End Diastolic Velocity 178 cm/s Mitral Valve Name Value Normal MV Doppler MV Peak Gradient 3 mmHg MV Mean Gradient 1 mmHg MV Diastolic Function MV E Peak Velocity 91 cm/s MV A Peak Velocity 41 cm/s MV E/A 2.2 MV Decel Time (PW) 189 ms MV Annular TDI MV E/e' (Septal) 15.5 MV E/e' (Lateral) 10.4 MV E/e' (Average) 12.9 Tricuspid Valve Name Value Normal TV Regurgitation Doppler TR Peak Velocity 236 cm/s TR Peak Gradient 22 mmHg Estimated PAP/RSVP RA Pressure 15 mmHg <=5 PA Systolic Pressure 37 mmHg <36 RV Systolic Pressure 37 mmHg <36 TV Annular TDI TV Lateral Rose s' Velocity 9.6 cm/s >=9.5 Aortic Valve Name Value Normal AV Doppler AV Peak Velocity 91 cm/s AV Peak Gradient 3 mmHg AV Mean Gradient 2 mmHg AV VTI 13 cm AV DI (Chepe) 0.79 Ventricles Name Value Normal LV Dimensions 2D/MM IVS Diastolic Thickness (2D) 1.2 cm 0.6-1.0 LVID Diastole (2D) 4.3 cm 4.2-5.8 LVIW Diastolic Thickness (2D) 1.5 cm 0.6-1.0 LVID Systole (2D) 3.7 cm 2.5-4.0 LV Mass (2D Cubed) 218.33 g 88.00-224.00 LV Mass Index (2D Cubed) 99 g/m2 49-115 Relative Wall Thickness (2D) 0.71 <=0.42 LV Fractional Shortening/Ejection Fraction 2D/MM LV Fractional Shortening (2D) 14 % 25-43 LV EF (2D Teichholz) 29 % LV Diastolic Volume (4C MOD) 97 ml LV EF (4C MOD) 44 % LV Diastolic Volume (2C MOD) 105 ml LV EF (2C MOD) 33 % LV Diastolic Volume (BP MOD) 113 ml 62-150 LV Diastolic Volume Index (BP MOD) 51 ml/m2 34-74 LV Systolic Volume (BP MOD) 71 ml 21-61 LV Systolic Volume Index (BP MOD) 32 ml/m2 11-31 LV EF (BP MOD) 38 % 52-72 LV Diastolic Length (4C) 9.4 cm LV Systolic Length (4C) 8.7 cm LV Stroke Volume (4C MOD) 43 ml Atria Name Value Normal LA Dimensions LA Volume (4C A-L) 95 ml LA Volume (BP A-L) 143 ml RA Dimensions RA Systolic Major [place] Length (4C) 7.8 cm 2.1-2.7 RA Area (4C) 42.1 cm2 <=18.0 Report Signatures
[2025-07-19 05:58] LABS: Albumin Level 2.4 g/dL (3.5-5.1); Anion Gap 3 mmol/L (4-12); Blood Urea Nitrogen 36 mg/dL (9-20); Calcium 8.3 mg/dL (8.4-10.2); Carbon Dioxide 26 mmol/L (22-30); Chloride 105 mmol/L (98-107); Estimated CRCL calculation 61 ml/min; Estimated Glomerular Filt Rate > 60; Glucose 87 mg/dL (65-110); Potassium 4.7 mmol/L (3.4-5.0); Sodium 134 mmol/L (137-145)
[2025-07-19 06:02] LABS: NT Pro B Type Natriuretic Pept 6250 pg/mL (19.9-100)
--- NOTE | 2025-07-19 08:16 | P.PNIM_ITS ---
Progress Note: A&P Assessment and Plan (1) Community acquired pneumonia: Qualifiers: Laterality: unspecified laterality Qualified Code(s): J18.9 - Pneumonia, unspecified organism Code(s): J18.9 - Pneumonia, unspecified organism Status: Acute Assessment and Plan: Patient with shortness of breath and productive cough x1 week. He states he is unable to expel sputum. Radiology read chest x-ray from urgent care as CHF with bilateral pneumonia. CRP elevated. Procal 0.2. Afebrile, no leukocytosis. -blood cultures pending - started on ceftriaxone and azithromycin -DuoNebs -Tylenol -Mucinex - Viral PCR negative - supplemental O2 current not required (2) Congestive heart failure: Qualifiers: Heart failure chronicity: acute on chronic Heart failure type: unspecified Qualified Code(s): I50.9 - Heart failure, unspecified Code(s): I50.9 - Heart failure, unspecified Status: Acute Assessment and Plan: Radiology read chest x-ray from urgent care as CHF with bilateral pneumonia. Bilateral lower extremity edema noted. - BNP 6860 -furosemide 40 mg IV push b.i.d. -echo ordered - monitor I&Os and daily weights - trend renal function - follows with cardiology at [facility]. Unsure if he has CHF diagnosis. (3) Pancytopenia: Code(s): D61.818 - Other pancytopenia Status: Acute Assessment and Plan: - WBC 4.2, Hgb 12.2, Plts 90 - unclear baseline Plan DVT prophylaxis: SCD Code status: Full Dispo: likely home tomorrow pending work-up Subjective Date/time seen: 07/19/25 08:16 Interval history: Patient seen and examined at bedside. States cough and breathing improved. Denied fevers, chills. Patient unsure if he has a prior heart failure diagnosis. Review of Systems Review of Systems: All systems reviewed & are unremarkable except as noted in HPI and below Exam Narrative: General: NAD Eyes: EOMI ENT: neck supple Cardiovascular: Regular rate and rhythm Respiratory: bilateral LL rales. Respirations even and unlabored on RA. Gastrointestinal: Soft, non tender Genitourinary: no suprapubic tenderness Musculoskeletal: mild BLE edema Skin: warm, dry Neuro: Alert. Psych: Mood appropriate Objective Data Vital Signs Vital Signs: Vital Signs - 24 hr 07/18/25 16:36 07/18/25 23:00 07/18/25 23:13 Temperature 98.5 F 97.3 F L Pulse Rate 85 78 Respiratory Rate 19 16 Blood Pressure 105/72 104/68 Pulse Oximetry 99 100 Oxygen Delivery Room Air 07/19/25 00:04 07/19/25 04:00 07/19/25 06:00 Temperature 97.1 F L Pulse Rate 78 95 79 Respiratory Rate 16 Blood Pressure 115/63 Pulse Oximetry 99 Oxygen Delivery Intake/Output Intake/Output: Intake & Output 07/16/25 07/17/25 07/18/25 07/19/25 23:59 23:59 23:59 23:59 Intake Total 300 Output Total 300 Balance 300 -300 Meds/Results Medications: Active Medications Generic Name Dose Route Start Last Admin Trade Name Freq PRN Reason Stop Dose Admin Acetaminophen 650 mg 07/18/25 23:34 Acetaminophen 325 Mg Tablet PO Q6H PRN Mild Pain (1-3) or Fever Albuterol/Ipratropium 3 ml 07/18/25 23:33 Ipratropium 0.5 Mg/Albuterol Sulfate 2.5 Mg (Base) Ampul.Neb 3 Ml INHALATION Q6HRT PRN Shortness Of Breath Or Wheezing Aspirin 81 mg 07/19/25 08:00 Aspirin 81 Mg Chewable Tablet PO DAILY@0800 [facility] Furosemide 40 mg 07/19/25 09:00 Furosemide Inj 40 Mg/4 Ml Vial IV PUSH BID [facility] Guaifenesin 600 mg 07/19/25 09:00 Guaifenesin 12 Hr 600 Mg Tabcr PO Q12HR [facility] Ceftriaxone Sodium 1 gm/ 50 mls @ 100 mls/hr 07/19/25 19:00 Sodium Chloride IVPB Q24H EVARISTO Azithromycin 500 mg/ Sodium 250 mls @ 250 mls/hr 07/19/25 20:00 Chloride IVPB 07/22/25 20:59 Q24H [facility] Perflutren Lipid Microsphere 0 ml 07/18/25 23:33 Perflutren Lipid Microspheres 1.5 Ml Vial Diluted To 10 Ml Total Volume IV PUSH 07/21/25 23:33 ONCE PRN adequate visualization Protocol Labs Labs: Laboratory Results - last 24 hr 07/18/25 07/18/25 07/18/25 17:24 17:24 17:24 WBC 4.2 L RBC 4.09 L Hgb 12.2 L Hct 39.5 L MCV 96.6 MCH 29.8 MCHC 30.9 L RDW 16.1 H Plt Count 90 L MPV Not Reportable Immature Gran % (Auto) 0.2 Neut % (Auto) 79.6 H Lymph % (Auto) 10.5 L [place] % (Auto) 7.6 Eos % (Auto) 1.9 Baso % (Auto) 0.2 Lymph # (Auto) 0.44 L [place] # (Auto) 0.3 Eos # (Auto) 0.1 Baso # (Auto) 0.0 Abs Immat Gran (auto) 0.01 Absolute Neuts (auto) 3.3 Absolute Nucleated RBC 0.000 Band Neutrophils % Not Reportable Nucleated RBC % 0.0 Platelet Estimate Decreased % Immature Plt Fraction 8.4 Schistocytes None seen Sodium 135 L Potassium 5.0 Chloride 102 Carbon Dioxide 29 Anion Gap 4 BUN 37 H Creatinine 1.07 Estim Creat Clear Calc Not Reportable Estimated GFR > 60 Glucose 83 POC Capillary Glucose Lactic Acid 1.3 Calcium 8.7 Phosphorus Total Bilirubin 0.7 AST 46 ALT 19 Alkaline Phosphatase 103 C-Reactive Protein 4.2 H Cancelled NT-Pro-B Natriuret Pep 6860 H Cancelled Total Protein 6.8 Albumin 3.0 L Influenza A (RT-PCR) Negative Influenza B (RT-PCR) Negative RSV (RT-PCR) Negative SARS-CoV-2 RNA (RT-PCR) Negative 07/19/25 07/19/25 01:52 05:19 WBC RBC Hgb Hct MCV MCH MCHC RDW Plt Count MPV Immature Gran % (Auto) Neut % (Auto) Lymph % (Auto) [place] % (Auto) Eos % (Auto) Baso % (Auto) Lymph # (Auto) [place] # (Auto) Eos # (Auto) Baso # (Auto) Abs Immat Gran (auto) Absolute Neuts (auto) Absolute Nucleated RBC Band Neutrophils % Nucleated RBC % Platelet Estimate % Immature Plt Fraction Schistocytes Sodium 134 L Potassium 4.7 Chloride 105 Carbon Dioxide 26 Anion Gap 3 L BUN 36 H Creatinine 1.05 Estim Creat Clear Calc 61 Estimated GFR > 60 Glucose 87 POC Capillary Glucose 95 Lactic Acid Calcium 8.3 L Phosphorus 3.8 Total Bilirubin AST ALT Alkaline Phosphatase C-Reactive Protein NT-Pro-B Natriuret Pep 6250 H Total Protein Albumin 2.4 L Influenza A (RT-PCR) Influenza B (RT-PCR) RSV (RT-PCR) SARS-CoV-2 RNA (RT-PCR) Quality VTE Prophylaxis VTE prophylaxis: mechanical ordered
[2025-07-19] MEDS: ASPIRIN 81 MG CHEWABLE TABLET PO (08:28)
[2025-07-19] MEDS: guaiFENesin 12 HR 600 MG TABCR PO ×2 (08:28→20:25)
[2025-07-19] MEDS: FUROSEMIDE INJ 40 MG/4 ML VIAL IV PUSH ×2 (08:28→17:42)
--- NOTE | 2025-07-19 08:57 | ECG_ITS ---
Test Date: 2025-07-18 16:22:05 Measurements Intervals [place] Rate: 87 P: 26 SD: 204 QRS: -9 QRSD: 94 T: 107 QT: 370 QTc: 446 Interpretive Statements SINUS RHYTHM WITH OCCASIONAL VENTRICULAR PREMATURE COMPLEXES WITH OCCASIONAL SUPRAVENTRICULAR PREMATURE COMPLEXES POSSIBLE LEFT ATRIAL ENLARGEMENT LOW QRS VOLTAGE IN DIFFUSE LEADS CANNOT R/O SEPTAL INFARCT, AGE INDETERMINATE BORDERLINE ST-T WAVE ABNORMALITY- INF/LAT LEADS BASELINE ARTIFACT- I, II, III, AVR, AVL, AVF ABNORMAL ECG No previous ECG available for comparison Electronically Signed On 07-19-2025 10:41:58 CDT by Aquilino Pollard D.O.
[2025-07-19 09:04] LABS: Procalcitonin 0.2 ng/mL
[2025-07-19] MEDS: cefTRIAXone 1 GM in SODIUM CHLORIDE 0.9% IV 50 ML 100 ML IVPB (19:52)
[2025-07-19] MEDS: AZITHROMYCIN IV 500 MG in SODIUM CHLORIDE 0.9% IV 250 ML IVPB (20:24)
[2025-07-20] VITALS: PULSE 85
[2025-07-20 04:00] VITALS: PULSE 83
[2025-07-20 06:00] VITALS: BP 102/47; PULSE 87; RESP 16; TEMP 36.2; O2SAT 99
[2025-07-20 06:48] LABS: Hematocrit 34.2 % (42.0-52.0); Hemoglobin 10.6 g/dL (14.0-18.0); Immature Platelet Fraction Pct 6.4 % (0.9-11.2); Mean Corpuscular HGB Conc 31.0 g/dl (32-36); Mean Corpuscular Hemoglobin 30.0 pg (26-34); Mean Corpuscular Volume 96.9 fl (80-100); Platelet Count Result 79 k/mm3 (150-375); Red Blood Count 3.53 M/mm3 (4.6-6.20); White Blood Count 4.3 K/mm3 (4.5-10.0)
[2025-07-20 07:14] LABS: Anion Gap 2 mmol/L (4-12); Blood Urea Nitrogen 39 mg/dL (9-20); Calcium 8.2 mg/dL (8.4-10.2); Carbon Dioxide 27 mmol/L (22-30); Chloride 104 mmol/L (98-107); Estimated CRCL calculation 60 ml/min; Estimated Glomerular Filt Rate > 60; Glucose 90 mg/dL (65-110); Potassium 4.5 mmol/L (3.4-5.0); Sodium 133 mmol/L (137-145)
[2025-07-20] MEDS: guaiFENesin 12 HR 600 MG TABCR PO (07:58)
[2025-07-20] MEDS: ASPIRIN 81 MG CHEWABLE TABLET PO (07:58)
[2025-07-20] MEDS: FUROSEMIDE INJ 40 MG/4 ML VIAL IV PUSH (07:58)
[2025-07-20 08:00] VITALS: PULSE 87; RESP 16; O2SAT 99
[2025-07-20 12:00] VITALS: PULSE 86
[2025-07-20 13:44] VITALS: BP 96/57; PULSE 85; RESP 14; TEMP 36.6; O2SAT 100
[2025-07-20 14:50] LABS: Hematocrit 36.3 % (42.0-52.0); Hemoglobin 11.3 g/dL (14.0-18.0); Immature Platelet Fraction Pct 6.8 % (0.9-11.2); Mean Corpuscular HGB Conc 31.1 g/dl (32-36); Mean Corpuscular Hemoglobin 30.2 pg (26-34); Mean Corpuscular Volume 97.1 fl (80-100); Red Blood Count 3.74 M/mm3 (4.6-6.20); White Blood Count 5.6 K/mm3 (4.5-10.0)
[2025-07-20 14:56] LABS: Platelet Count Result 89 k/mm3 (150-375)
--- NOTE | 2025-07-20 15:37 | P.DS_ITS ---
DS: Admitting Diagnosis Discharge Date 07/20/25 Admitting Diagnosis - community-acquired pneumonia - acute on chronic HFrEF - pancytopenia DS: Discharge Diagnosis Discharge Diagnosis (1) Community acquired pneumonia: Qualifiers: Laterality: unspecified laterality Qualified Code(s): J18.9 - Pneumonia, unspecified organism Code(s): J18.9 - Pneumonia, unspecified organism Status: Acute (2) Congestive heart failure: Qualifiers: Heart failure chronicity: acute on chronic Heart failure type: unspecified Qualified Code(s): I50.9 - Heart failure, unspecified Code(s): I50.9 - Heart failure, unspecified Status: Acute Assessment and Plan: acute on chronic HFrEF (3) Pancytopenia: Code(s): D61.818 - Other pancytopenia Status: Acute DS: Summary Hospital Course Reason for hospitalization: - community-acquired pneumonia - acute on chronic HFrEF - pancytopenia Hospital Course: A 79-year-old male with a past medical history of CHF, gout presented to the ED on 07/18/2025 with complaints of shortness of breath. Patient reported productive cough and progressively worsening dyspnea. Initial vital signs were 105/72, HR 85, respirations 19, 98.5? F, 99% on room air No baseline available for labs. CBC Significant for WBC 4.2, RBC 4.09, HGB 12.2. Chemistry with CRP 4.2, BNP 6860. Viral panel negative Radiology read chest x-ray from urgent care as CHF with bilateral pneumonia. Patient was started on IV diuresis as well as Rocephin and azithromycin. Patient remained afebrile and on room air. His symptoms significantly improved with IV antibiotics and diuresis. Echo showed an EF of 35-40%. I did call patient's cardiology office at [facility] for which he follows with for history of cardiomyopathy. His last echocardiogram was 08/2024 with an EF of 50%. Patient is already managed on Bumex, spironolactone, and Jardiance. I did notify the office of his new slightly reduced ejection fraction and they will make an appointment for him sometime in the next 1-2 weeks. Patient denies any chest pain or dyspnea on day of discharge. He will resume his home diuretics. Considered starting beta-yelena/ACEI however patient's blood pressure has been running on the lower side. He reported he checks his blood pressure daily and that his blood pressure runs in the 90s systolic at home and denies any as sociated lightheadedness or dizziness. In regards to pneumonia, patient was transitioned to p.o. antibiotics to complete a 5 day course. He was instructed to follow up his primary care provider. 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 Instructed to follow up with his primary care provider for monitoring his CBC. In regards to his right lower extremity laceration, he will follow-up with his primary care provider in 10-14 days for suture removal. Patient was discharged home in stable condition. Strict return precautions discussed. Status at Discharge Functional status at discharge: independent ambulation Time Spent with Patient Time attestation: Total time spent providing and/or coordinating discharge services: Time spent: Greater than 30 minutes Exam Narrative: General: NAD Eyes: EOMI ENT: neck supple Cardiovascular: Regular rate and rhythm Respiratory: clear to auscultation bilaterally. Respirations even and unlabored on RA. Gastrointestinal: Soft, non tender Genitourinary: no suprapubic tenderness Musculoskeletal: mild BLE edema Skin: warm, dry Neuro: Alert. Psych: Mood appropriate DS: Data Data Completed and Pending Labs on day of discharge: Labs from last 24 hours 07/20/25 07/20/25 14:44 06:29 WBC 5.6 4.3 L RBC 3.74 L 3.53 L Hgb 11.3 L 10.6 L Hct 36.3 L 34.2 L MCV 97.1 96.9 MCH 30.2 30.0 MCHC 31.1 L 31.0 L RDW 16.0 H 16.0 H Plt Count 89 L 79 L MPV TNP TNP % Immature Plt Fraction 6.8 6.4 Sodium 133 L Potassium 4.5 Chloride 104 Carbon Dioxide 27 Anion Gap 2 L BUN 39 H Creatinine 1.07 Estim Creat Clear Calc 60 Estimated GFR > 60 Glucose 90 Calcium 8.2 L Discharge Plan Discharge Attending physician on discharge: Rob Zuleta Consulting providers: Olivia Logan Discharging Clinician: Olivia Logan Anticipated Discharge Date/Time: 07/20/25 15:28 Patient Disposition: Home Activity: as tolerated Diet: regular Discharge Instructions: Take all medications as prescribed. Finish antibiotics if prescribed, even if you are feeling better. You only need one more day of azithromycin and 3 days of amoxicillin. The echocardiogram here showed that the pump function of your heart is decreased from the echocardiogram you had last August. 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 They should call you for an appointment. If you do not hear from them in the next couple days, call their office. Follow-up with your primary care provider in 10-14 days to have the sutures from your leg removed. Return to the emergency department if you develop chest pain, shortness of breath, persistent fever >100.4, confusion, loss of consciousness. Patient Instructions: Antibiotic Form, Heart Failure (DC), Bacterial Pneumonia (GEN) Patient Language: [place] Stand Alone Forms: General Discharge Information Follow-up/Referrals: Lynn,Chloe Sher MD [Primary Care Provider, Unknown] - Call for Appointment Referral Note: 5-7 days Latrell,MD Hans [Non-Staff, Unknown] - Call for Appointment Referral Note: make an appointment for as soon as possible Discharge Medications: New guaifenesin [Mucus Relief ER] 600 mg Tablet Extended Release 12hr 600 mg PO Q12HR Qty: 10 0RF amoxicillin-pot clavulanate 875-125 mg tablet 1 tablet PO Q12H Qty: 6 0RF azithromycin 500 mg tablet 500 mg PO DAILY 1 Days Qty: 1 0RF Continued spironolactone 25 mg tablet 25 mg PO BID folic acid 1 mg tablet 1 mg PO DAILY Jardiance 10 mg tablet 10 mg PO DAILY bumetanide 2 mg tablet 2 mg PO BID allopurinol 300 mg tablet 300 mg PO DAILY colchicine 0.6 mg tablet 0.6 mg PO BID latanoprost 0.005 % drops 1 drp EACH EYE QPM Date of admission: 07/19/25 11:43 Primary Care Provider: Lynn*Chloe Pederson Admitting Provider: Edmund Maier Attending physician on admission: Edmund Maier Condition: Stable Hospitalist MIPS Heart Failure (Exclusion) Patient has history of Heart Transplant or Left Ventricular Assistive Device?: No IF YES, STOP HERE Heart Failure (Qualifier) Patient has current or prior documentation of LVEF less than or equal to 40%, or mod/servere depressed LVSF?: Yes IF NO, STOP HERE If Yes, Heart Failure (Qualifier) Patient was prescribed or already taking an Angiotensin-Converting Enzyme (AMIRA) Inhibitor, or Antiotensin Receptor Yelena (ARB): No Patient was prescribed or already taking bisoprolol, carvedilol, or sustained release metoprolol succinate: No If Medications not prescribed/taking Reason patient not prescribed/taking AMIRA or ARB: Medical reasons: allergy, intolerance, contraindication or other (hypotension) Reason patient not prescribed/taking bisoprolol, carvedilol, or sustained realease metoprolol succinate: Medical reasons: allergy, intolerance, contraindication or other (hypotension)
== END 2025-07-20 16:33 | disposition home or self-care (01) | DRG 291 ==
LOC: ANHED 18:11 → ANH3MEDSUR 19:33
PROVIDERS: Nurse Practitioner Adult Health; Admitting Provider Internal Medicine; Emergency Provider Emergency Medicine; PCP Internal Medicine; Visit Provider Physician Assistant
DX: I50.23 Acute on chronic systolic (congestive) heart failure (principal); J18.9 Pneumonia, unspecified organism; D61.818 Other pancytopenia; S81.811A Laceration without foreign body, right lower leg, initial encounter; W22.8XXA Striking against or struck by other objects, initial encounter; Z20.822 Contact with and (suspected) exposure to COVID-19
CPT/HCPCS: 12013; 36415; 80048; 80053; 80069; 82948; 83605; 83880; 84145; 85025; 85027; 85055; 86140; 87040; 87637; 93005; 93306; 96365; 96367; 96375; 99285; A9270; G0378; J0456; J0696; J1938; J2004; J7050